=== PATIENT | female | born 1975 | race Caucasian/White ===

== ENCOUNTER 2021-08-18 19:49 | Emergency (ER) | payer BC, OTHER ==
[2021-08-18 20:00] VITALS: BP 110/74; PULSE 94; TEMP 98.9; BMI 25.0
== END 2021-08-18 21:30 | disposition home or self-care (01) ==
LOC: JER 19:49
DX: U07.1 COVID-19 (principal); R05.1 Acute cough
CPT/HCPCS: 71046-TC-FY; 99283-25

== ENCOUNTER 2022-12-02 10:16 | Emergency (ER) | payer OTHER, BC ==
[2022-12-02 10:24] VITALS: BP 113/72; PULSE 86; RESP 18; TEMP 98; BMI 28.9
[2022-12-02] MEDS ORDERED: IBUPROFEN 400 MG TABLET (FP) PO ONE ×2 (11:44→11:49)
[2022-12-02] MEDS ORDERED: CYCLOBENZAPRINE HCL 10 MG TABLET (FP) PO ONE (13:07)
== END 2022-12-02 15:39 | disposition left against medical advice (07) ==
LOC: JER 10:16
DX: M79.602 Pain in left arm (principal)
CPT/HCPCS: 93971; 99284-25

== ENCOUNTER 2022-12-21 18:48 | Emergency (ER) | payer BC, OTHER ==
[2022-12-21 18:56] VITALS: BMI 28.5
[2022-12-21] MEDS ORDERED: METOCLOPRAMIDE HCL INJECTION 10 MG/2 ML VIAL IVPUSH ONE (20:06)
[2022-12-21] MEDS ORDERED: SODIUM CHLORIDE 0.9% 500 ML INFUS.BAG IV ONE (20:07)
[2022-12-21] MEDS ORDERED: METOCLOPRAMIDE HCL INJECTION 10 MG/2 ML VIAL ONE (20:20)
[2022-12-21] MEDS ORDERED: LIDOCAINE 5% TOPICAL PATCH TP ONE (20:53)
[2022-12-21] MEDS ORDERED: LIDOCAINE 5% TOPICAL PATCH ONE (20:59)
[2022-12-21 21:00] LABS: BASO % 0.6 % (0-2.0); EOS % 1.2 % (0-4.5); HEMATOCRIT 38.5 % (32.4-45.2); HEMOGLOBIN 13.5 GM/dL (10.7-15.3); LYMPH % 24.4 % (8-40); MCH 31.4 pg (25.7-33.7); MEAN CELL VOLUME 89.7 fl (80-96); MEAN PLT VOLUME 9.3 fl (7.5-11.1); MONO % 7.1 % (3.8-10.2); NEUT % 66.7 % (42.8-82.8); PLATELET COUNT 358 10^3/uL (134-434); RBC 4.29 M/mm3 (3.60-5.2); RDW 14.2 % (11.6-15.6); WHITE BLOOD COUNT 8.8 K/mm3 (4.0-10.0)
[2022-12-21 21:07] LABS: POTASSIUM 5.2 mmol/L (3.5-5.1)
[2022-12-21 21:09] LABS: CALCIUM 10.2 mg/dL (8.5-10.1)
[2022-12-21 21:10] LABS: ALBUMIN 4.2 g/dl (3.4-5.0); BLOOD UREA NITROGEN 13.9 mg/dL (7-18)
[2022-12-21 21:13] LABS: CREATININE 0.7 mg/dL (0.55-1.3)
[2022-12-21 21:15] LABS: BILIRUBIN,TOTAL 0.4 mg/dL (0.2-1); TOT PROT 8.1 g/dl (6.4-8.2)
[2022-12-21] MEDS ORDERED: LIDOCAINE PATCH REMOVAL MC SCH (22:00)
[2022-12-21 23:13] VITALS: BP 118/69; PULSE 70; RESP 18; TEMP 98.8
== END 2022-12-22 04:12 | disposition home or self-care (01) ==
LOC: JER 18:48
PROC: 3E0233Z Introduction of Anti-inflammatory into Muscle, Percutaneous Approach (ICD-10-PCS; principal; 2022-12-21)
DX: R51.9 Headache, unspecified (principal); R59.0 Localized enlarged lymph nodes; R11.0 Nausea; R42 Dizziness and giddiness; R09.81 Nasal congestion; H53.71 Glare sensitivity; D17.22 Benign lipomatous neoplasm of skin and subcutaneous tissue of left arm
CPT/HCPCS: 36415; 70450-TC; 76604; 76882-TC-RT-FY; 80053; 84703; 85025; 93005; 93010; 99284-25

== ENCOUNTER 2024-05-26 18:51 | Emergency (ER) | payer OTHER ==
[2024-05-26 19:19] VITALS: BP 104/71; PULSE 72; RESP 18; TEMP 99.2; BMI 26.4
[2024-05-26] MEDS ORDERED: KETOROLAC TROMETHAMINE 30 MG/1 ML VIAL ONE (19:55)
[2024-05-26] MEDS: KETOROLAC TROMETHAMINE 30 MG/1 ML VIAL IM ONE (19:57)
[2024-05-26] MEDS ORDERED: LIDOCAINE 5% TOPICAL PATCH ONE (20:09)
[2024-05-26] MEDS: LIDOCAINE 5% TOPICAL PATCH TP ONE (20:10)
[2024-05-26] MEDS ORDERED: LIDOCAINE PATCH REMOVAL MC SCH (22:00)
== END 2024-05-26 20:19 | disposition home or self-care (01) ==
LOC: FER 18:51
PROC: 3E0133Z Introduction of Anti-inflammatory into Subcutaneous Tissue, Percutaneous Approach (ICD-10-PCS; principal; 2024-05-26)
DX: R07.89 Other chest pain (principal); X50.1XXA Overexertion from prolonged static or awkward postures, initial encounter
CPT/HCPCS: 71046-TC-FY; 93005; 99284-25

== ENCOUNTER 2024-06-23 12:13 | Emergency (ER) | payer BC, OTHER ==
[2024-06-23 12:24] VITALS: BP 104/70; PULSE 82; RESP 16; TEMP 97.7; BMI 25.4
[2024-06-23] MEDS ORDERED: KETOROLAC TROMETHAMINE 30 MG/1 ML VIAL ONE (12:36)
[2024-06-23] MEDS: KETOROLAC TROMETHAMINE 30 MG/1 ML VIAL IM ONE (12:47)
[2024-06-23 15:42] LABS: HIV INTERPRETATION NEGATIVE (NEGATIVE)
== END 2024-06-23 14:00 | disposition home or self-care (01) ==
LOC: FER 12:13
PROC: 3E0233Z Introduction of Anti-inflammatory into Muscle, Percutaneous Approach (ICD-10-PCS; principal; 2024-06-23)
DX: M25.562 Pain in left knee (principal)
CPT/HCPCS: 36415; 73562-TC-LT-FY; 86803; 87389; 99284-25